=== PATIENT | female | born 1985 | race Two or more races ===

== ENCOUNTER 2020-02-22 22:45 | Inpatient (IN) | payer SELFPAY ==
[~2020-02-22] VITALS: Ht 154.9 cm; Wt 81.2 kg
[2020-02-22] MEDS ORDERED: SODIUM CHLORIDE FLUSH 10ML SYR IVF ONE (23:00)
--- NOTE | 2020-02-22 23:00 | NUR ---
PT RESTING IN BED. PT NITRO DRIP STOPPED PER PROVIDER.
[2020-02-22] MEDS ORDERED: LABE200T6 PO (23:08)
[2020-02-22] MEDS ORDERED: CHOL10003 PO (23:09)
[2020-02-22] MEDS ORDERED: VIT1TABL73 PO (23:11)
[2020-02-22 23:23] LABS: BASOPHILS % (AUTO) 1 % (0-1); EOSINOPHILS # (AUTO) 0.08 x10^3/uL (0-0.4); EOSINOPHILS % (AUTO) 1 % (1-7); LYMPHOCYTES # (AUTO) 1.35 x10^3/uL (1-3.4); LYMPHOCYTES % (AUTO) 8 % (22-44); MD NO; MEAN CORPUSCULAR HEMOGLOBIN 34.5 pg (27.0-34.8); MEAN CORPUSCULAR HGB CONC 33.9 g/dL (32.4-35.8); MEAN CORPUSCULAR VOLUME 101.8 fL (80-100); MONOCYTES # (AUTO) 0.55 x10^3/uL (0.2-0.8); MONOCYTES % (AUTO) 3 % (2-9); NEUTROPHILS # (AUTO) 13.96 x10^3/uL (1.8-6.8); NEUTROPHILS % (AUTO) 87 % (42-75); PLATELET COUNT 267 x10^3/uL (130-400); RED BLOOD COUNT 3.53 x10^6/uL (3.82-5.3); RED CELL DISTRIBUTION WIDTH 14.3 % (9.6-15.2)
[2020-02-22 23:29] LABS: ALBUMIN 3.4 g/dL (3.4-5.0); ANION GAP 8 mmol/L (5-15); CALCIUM 9.7 mg/dL (8.5-10.1); CHLORIDE 103 mmol/L (98-107)
[2020-02-23] MEDS ORDERED: SODIUM ZIRCONIUM CYCLOSILICATE 10 GM PO ONE
--- NOTE | 2020-02-23 00:46 | NUR ---
PT RESTING IN BED. PT HAS NO WANTS OR NEEDS AT THIS TIME
[2020-02-23] MEDS ORDERED: DEXTROSE 4 GM TAB.CHEW PO PRN (01:00)
[2020-02-23] MEDS ORDERED: ACETAMINOPHEN 325 MG TABLET PO PRN (01:00)
[2020-02-23] MEDS ORDERED: DEXTROSE 50%, 50ML SYRINGE IVPush PRN (01:00)
[2020-02-23] MEDS ORDERED: GLUCAGON 1 MG IM PRN (01:00)
--- NOTE | 2020-02-23 04:06 | NUR ---
pt sleeping in bed. pt denied any wants or needs at this time
--- NOTE | 2020-02-23 05:23 | NUR ---
KIRT Escalera had contact with pt upon arrival at facility.
[2020-02-23] MEDS: INSULIN LISPRO 100 UNITS/ML, PEN SQ-INSULIN SCH ×4 (07:00→21:00)
--- NOTE | 2020-02-23 07:57 | NUR ---
report received from nathen elder.
--- NOTE | 2020-02-23 08:17 | NUR ---
BG 72 AT THIS TIME.
--- NOTE | 2020-02-23 08:21 | NUR ---
BEDSIDE COMMODE IN ROOM PER REQUEST.
--- NOTE | 2020-02-23 08:37 | NUR ---
MEAL TRAY PROVIDED AT THIS TIME.
--- NOTE | 2020-02-23 08:37 | NUR ---
MEDICATIONS ORDERED FROM PHARMACY AT THIS TIME.
[2020-02-23] MEDS: AZITHROMYCIN 500 MG in SODIUM CHLORIDE 0.9% 250 ML IV SCH (09:00)
[2020-02-23] MEDS: SODIUM CHLORIDE FLUSH 10ML SYR IVF SCH ×2 (09:00→21:00)
[2020-02-23] MEDS ORDERED: CEFTRIAXONE PMX 1GM/50ML 50 ML ONE (09:06)
[2020-02-23] MEDS: CHOLECALCIFEROL 1,000 UNIT TABLET PO SCH (09:10)
[2020-02-23] MEDS: LABETALOL 200 MG TABLET PO SCH (09:10)
[2020-02-23] MEDS: CEFTRIAXONE PMX 1GM/50ML 50 ML IV SCH (09:11)
--- NOTE | 2020-02-23 09:12 | NUR ---
PT MEDICATED PER EMAR. ABX INFUSING AT THIS TIME. PT TOLERATED WELL.
--- NOTE | 2020-02-23 10:13 | NUR ---
ZITHROMAX INFUSING AT THIS TIME. PT TOLERATED WELL. PT'S AOX4. RESPS EVEN AND UNLABORED. OXY MASK PLACED AGAIN D/T LOW SPO2 AT THIS TIME.
[2020-02-23] MEDS ORDERED: ONDANSETRON 2MG/ML, 2ML ONE (10:41)
[2020-02-23] MEDS: ONDANSETRON 2MG/ML, 2ML IVPush PRN (10:45)
--- NOTE | 2020-02-23 10:47 | NUR ---
PT VOMITTING AT THIS TIME. PT MEDICATED FOR NAUSEA AT THIS TIME. PT TOLERATED WELL.
--- NOTE | 2020-02-23 10:50 | NUR ---
BG 170 AT THIS TIME.
--- NOTE | 2020-02-23 11:00 | NUR ---
MEDICATION ORDERED FROM PHARMACY AT THIS TIME.
--- NOTE | 2020-02-23 11:01 | NUR ---
MEAL TRAY ORDERED AT THIS TIME.
--- NOTE | 2020-02-23 11:15 | NUR ---
INSULIN GIVEN AT THIS TIME. PT TOLERATED WELL.
--- NOTE | 2020-02-23 11:48 | NUR ---
pt states "i don't feel nauseous anymore." at this time. pt resting in gurney. resps even and unlabored.
--- NOTE | 2020-02-23 11:54 | NUR ---
hospital bed ordered at this time.
--- NOTE | 2020-02-23 12:16 | NUR ---
Pt resting in room comfortableyennifer PERKINS
--- NOTE | 2020-02-23 12:43 | NUR ---
PT ON HOSPITAL BED.
--- NOTE | 2020-02-23 13:05 | NUR ---
RECEIVED REPORT FROM MARTHA. PT UPRIGHT ON HOSPITAL BED WITH EYES CLOSED, RESPONDS APPROP TO STAFF, NAD WITH SUPPL O2 IN PLACE, COMFORT MEASURES PROVIDED, CALL LIGHT WITHIN REACH.
--- NOTE | 2020-02-23 14:01 | NUR ---
PT REMAINS UPRIGHT ON HOSPITAL BED TEXTING ON CELL PHONE, RESPONDS APPROP TO STAFF, NAD WITH SUPPL O2 IN PLACE, COMFORT MEASURES PROVIDED, CALL LIGHT WITHIN REACH.
--- NOTE | 2020-02-23 15:05 | NUR ---
PT UPRIGHT ON HOSPITAL BED TEXTING ON CELL PHONE, RESPONDS APPROP TO STAFF, NAD WITH SUPPL O2 IN PLACE, COMFORT MEASURES PROVIDED, CALL LIGHT WITHIN REACH.
--- NOTE | 2020-02-23 15:10 | NUR ---
NEPH UPDATED ON PT STATUS.
--- NOTE | 2020-02-23 16:00 | NUR ---
PT REMAINS UPRIGHT ON HOSPITAL BED TALKING ON CELL PHONE, RESPONDS APPROP TO STAFF, NAD WITH SUPPL O2 IN PLACE, COMFORT MEASURES PROVIDED, CALL LIGHT WITHIN REACH.
--- NOTE | 2020-02-23 17:03 | NUR ---
PT UPRIGHT ON HOSPITAL BED TALKING/TESTING ON CELL PHONE, RESPONDS APPROP TO STAFF, NAD WITH SUPPL O2 IN PLACE, COMFORT MEASURES PROVIDED, CALL LIGHT WITHIN REACH.
--- NOTE | 2020-02-23 17:37 | NUR ---
Pt to be admitted to ICU, room not cleam, will call when ready, TP RN aware. Report called to Kami.
[2020-02-23 18:33] VITALS: BP 157/96
[2020-02-23] MEDS ORDERED: INSULIN GLARGINE 100 UNITS/ML, PEN SQ-INSULIN SCH (21:00)
[2020-02-23 23:56] VITALS: BP 156/94
[2020-02-24 02:13] VITALS: BP 147/86
[2020-02-24 05:42] LABS: ALBUMIN 3.4 g/dL (3.4-5.0); ANION GAP 10 mmol/L (5-15); CALCIUM 9.1 mg/dL (8.5-10.1); CHLORIDE 100 mmol/L (98-107)
[2020-02-24 05:43] LABS: CREATININE 7.33 mg/dL (0.55-1.02)
[2020-02-24 05:57] LABS: BASOPHILS # (AUTO) 0.03 x10^3/uL (0-0.1); BASOPHILS % (AUTO) 0 % (0-1); EOSINOPHILS # (AUTO) 0.14 x10^3/uL (0-0.4); EOSINOPHILS % (AUTO) 2 % (1-7); LYMPHOCYTES # (AUTO) 1.93 x10^3/uL (1-3.4); LYMPHOCYTES % (AUTO) 21 % (22-44); MD NO; MEAN CORPUSCULAR HEMOGLOBIN 34.1 pg (27.0-34.8); MEAN CORPUSCULAR HGB CONC 33.4 g/dL (32.4-35.8); MEAN CORPUSCULAR VOLUME 101.9 fL (80-100); MEAN PLATELET VOLUME 9.1 fL (7.4-10.4); MONOCYTES # (AUTO) 0.65 x10^3/uL (0.2-0.8); MONOCYTES % (AUTO) 7 % (2-9); NEUTROPHILS # (AUTO) 6.56 x10^3/uL (1.8-6.8); NEUTROPHILS % (AUTO) 71 % (42-75); PLATELET COUNT 254 x10^3/uL (130-400); RED BLOOD COUNT 3.62 x10^6/uL (3.82-5.3); RED CELL DISTRIBUTION WIDTH 14.1 % (9.6-15.2)
[2020-02-24] MEDS: INSULIN LISPRO 100 UNITS/ML, PEN SQ-INSULIN SCH ×2 (07:00→11:00)
[2020-02-24 09:45] VITALS: BP 113/66
[2020-02-24] MEDS: CHOLECALCIFEROL 1,000 UNIT TABLET PO SCH (09:45)
[2020-02-24] MEDS: LABETALOL 200 MG TABLET PO SCH (09:45)
[2020-02-24] MEDS: CEFTRIAXONE PMX 1GM/50ML 50 ML IV SCH (09:45)
[2020-02-24] MEDS: SODIUM CHLORIDE FLUSH 10ML SYR IVF SCH (09:45)
[2020-02-24] MEDS: AZITHROMYCIN 500 MG in SODIUM CHLORIDE 0.9% 250 ML IV SCH (09:50)
[2020-02-24] MEDS ORDERED: AZIT500T10 PO (11:12)
[2020-02-24] MEDS: ONDANSETRON 2MG/ML, 2ML IVPush PRN (11:20)
[2020-02-24 13:49] VITALS: BP 114/76
[2020-02-24] MEDS ORDERED: HEPARIN 5,000 UNITS/ML, 1ML SQ SCH (14:00)
== END 2020-02-24 16:40 | disposition home or self-care (01) | DRG 193 ==
LOC: ED 02-23 00:18 → EDIP 02-23 00:24 → ICU 02-23 18:29
PROVIDERS: ADMIT Internal Medicine; ATTEND Hospitalist
PROC: 5A1D70Z Performance of Urinary Filtration, Intermittent, Less than 6 Hours Per Day (ICD-10-PCS; principal; 2020-02-23)
DX: J18.9 Pneumonia, unspecified organism (principal); J96.01 Acute respiratory failure with hypoxia; N18.6 End stage renal disease; J81.0 Acute pulmonary edema; J81.1 Chronic pulmonary edema; I12.0 Hypertensive chronic kidney disease with stage 5 chronic kidney disease or end stage renal disease; E87.70 Fluid overload, unspecified; Z99.2 Dependence on renal dialysis; Z88.8 Allergy status to other drugs, medicaments and biological substances; I95.3 Hypotension of hemodialysis; E87.5 Hyperkalemia; E11.22 Type 2 diabetes mellitus with diabetic chronic kidney disease; Z79.4 Long term (current) use of insulin; Z20.828 Contact with and (suspected) exposure to other viral communicable diseases
CPT/HCPCS: 36415; 71045; 80048; 80069; 82040; 82962; 83735; 84145; 84550; 85025; 86704; 86706; 87081; 87340; 93005; G0378; J0456; J0696; J2405; J1815; J7050